=== PATIENT | female | born 1970 | race Two or more races ===

== ENCOUNTER 2020-12-09 21:12 | Emergency (ER) | payer OTHER ==
[~2020-12-09] VITALS: Ht 157.5 cm; Wt 52.3 kg
[2020-12-09] MEDS ORDERED: MELO-107 PO (21:31)
[2020-12-09] MEDS ORDERED: MEDR4 PO (21:31)
[2020-12-09] MEDS ORDERED: METF-960 PO (21:31)
[2020-12-09] MEDS ORDERED: ACETAMINOPHEN 325 MG TABLET PO ONE (23:45)
[2020-12-10 00:47] VITALS: BP 124/86
== END 2020-12-10 01:30 | disposition home or self-care (01) ==
LOC: EMS 21:16
DX: M25.462 Effusion, left knee (principal); E11.9 Type 2 diabetes mellitus without complications; I10 Essential (primary) hypertension; Z90.710 Acquired absence of both cervix and uterus; Z79.84 Long term (current) use of oral hypoglycemic drugs
CPT/HCPCS: 29530; 82962; 99283